=== PATIENT | male | born 2000 | race Caucasian/White ===

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

== ENCOUNTER 2023-12-06 16:50 | Emergency (ER) | payer OTHER ==
--- NOTE | 2023-12-06 16:58 | ERPHSYRPT ---
- History of Present Illness Time Seen by Provider: 12/06/23 16:57 Historian: patient, family Exam Limitations: no limitations Physician History: This is a 23-year-old male who presents to the emergency department with 2-day history of simultaneous onset right lower quadrant and right flank pain. Patient's symptoms have been intermittent for the 2-day period. However today, the pain became more intense and was associated with vomiting. Is more constant as well. Patient has had no prior abdominal surgeries. He takes no medications chronically and is not on any anticoagulation therapy. He has no known drug allergies. He denies chest pain. He denies shortness of breath. Patient has been diaphoretic. Timing/Duration: day(s) (2), worse Quality: sharpness, stabbing Abdominal Pain Onset Location: RLQ, flank (Right flank) Pain Radiation: RLQ, flank (Right flank) Severity of Pain-Max: moderate Severity of Pain-Current: moderate Modifying Factors: Improves With: vomiting Associated Symptoms: diaphoresis, loss of appetite, nausea, vomiting Previous symptoms: no prior history, no recent treatment Allergies/Adverse Reactions: No Known Drug Allergies Allergy (Verified 12/06/23 16:59) Hx Tetanus, Diphtheria Vaccination/Date Given: Yes Hx Influenza Vaccination/Date Given: Yes Travel Risk - International Travel Have you traveled outside of the country in past 3 weeks: No - Emerging Infectious Disease Are you exhibiting symptoms associated with any current EIDs: No - Review of Systems Constitutional: No Symptoms Eyes: No Symptoms Ears, Nose, & Throat: No Symptoms Respiratory: No Symptoms Cardiac: No Symptoms Abdominal/Gastrointestinal: Abdominal Pain (Lower quadrant), Nausea, Vomiting, Appetite Changes Genitourinary Symptoms: Flank Pain (Right flank pain) Musculoskeletal: No Symptoms Skin: No Symptoms Neurological: No Symptoms Psychological: No Symptoms Endocrine: No Symptoms Hematologic/Lymphatic: No Symptoms Immunological/Allergic: No Symptoms All Other Systems: Reviewed and Negative - Past Medical History Pertinent Past Medical History: No - Past Surgical History Past Surgical History: No - Social History Smoking Status: Never smoker Drug Use: none - Nursing Vital Signs Nursing Vital Signs: Initial Vital Signs Temperature 97.8 F 12/06/23 17:01 Pulse Rate 60 12/06/23 17:01 Respiratory Rate 16 12/06/23 17:01 Blood Pressure 153/84 12/06/23 17:01 O2 Sat by Pulse Oximetry 100 12/06/23 17:01 Pain Scale Pain Intensity 7 - Physical Exam General Appearance: mild distress, alert Eye Exam: PERRL/EOMI, eyes nml inspection Ears, Nose, Throat Exam: normal ENT inspection, moist mucous membranes Neck Exam: normal inspection, non-tender, supple, full range of motion Respiratory Exam: normal breath sounds, lungs clear, airway intact, No chest tenderness, No respiratory distress Cardiovascular Exam: bradycardia Gastrointestinal/Abdomen Exam: soft, normal bowel sounds, No tenderness Rectal Exam: not done Back Exam: normal inspection, normal range of motion, No CVA tenderness, No vertebral tenderness Extremity Exam: normal inspection, normal range of motion, pelvis stable Neurologic Exam: alert, oriented x 3, cooperative, advanced practice rn II-XII nml as tested, nml cerebellar function, nml station & gait, sensation nml Skin Exam: diaphoresis Lymphatic Exam: No adenopathy SpO2 Interpretation: normal O2 Delivery: Room Air - Course Nursing assessment & vital signs reviewed: Yes EKG Interpreted by Me: RATE (50), Sinus Rhythm, NORMAL AXIS, NORMAL INTERVALS, NORMAL QRS, NORMAL ST-T, Other (Acute ischemia on today's twelve-lead EKG.) Ordered Tests: Active Orders 24 hr Category Date Time Status EKG-ER Only STAT Care 12/06/23 17:17 Active IV Insertion STAT Care 12/06/23 17:17 Active ABDOMEN AND PELVIS W/0 CONTRAS [CT] Stat Exams 12/06/23 17:18 Taken AMYLASE Stat Lab 12/06/23 17:05 Completed CBC W DIFF Stat Lab 12/06/23 17:05 Completed CMP Stat Lab 12/06/23 17:05 Completed CULTURE,URINE Stat Lab 12/06/23 17:19 Received LIPASE Stat Lab 12/06/23 17:05 Completed UA W/RFX UR CULTURE Stat Lab 12/06/23 17:19 Completed Medication Summary Generic Name Dose Route Start Last Admin Trade Name Freq PRN Reason Stop Dose Admin Lactated Ringer's 1,000 mls @ 999 mls/hr 12/06/23 18:03 12/06/23 18:07 Lactated Ringers IV 12/06/23 19:03 999 mls/hr .Q1H1M ONE Administration Discontinued Medications Generic Name Dose Route Start Last Admin Trade Name Freq PRN Reason Stop Dose Admin Hydromorphone HCl 1 mg 12/06/23 17:17 12/06/23 17:21 Hydromorphone 1 Mg/1ml Inj IV 12/06/23 17:18 1 mg STAT ONE Administration Hydromorphone HCl Confirm 12/06/23 17:20 Hydromorphone 1 Mg/1ml Inj Administered 12/06/23 17:21 Dose 1 mg .ROUTE .STK-MED ONE Hydromorphone HCl 1 mg 12/06/23 18:38 12/06/23 18:42 Hydromorphone 1 Mg/1ml Inj IV 12/06/23 18:39 1 mg STAT ONE Administration Hydromorphone HCl Confirm 12/06/23 18:41 Hydromorphone 1 Mg/1ml Inj Administered 12/06/23 18:42 Dose 1 mg .ROUTE .STK-MED ONE Sodium Chloride 1,000 mls @ 999 mls/hr 12/06/23 17:17 12/06/23 18:22 Sodium Chloride 0.9% 1000 Ml IV 12/06/23 18:17 Infused .Q1H1M STA Infusion Sodium Chloride Confirm 12/06/23 17:20 Sodium Chloride 0.9% 1000 Ml Administered 12/06/23 17:21 Dose 1,000 mls @ ud .ROUTE .STK-MED ONE Lactated Ringer's Confirm 12/06/23 18:06 Lactated Ringers Administered 12/06/23 18:07 Dose 1,000 mls @ ud IV .STK-MED ONE Ketorolac Tromethamine 30 mg 12/06/23 17:17 12/06/23 17:21 Ketorolac Tromethamine 30 Mg/Ml Inj IV 12/06/23 17:18 30 mg STAT ONE Administration Ketorolac Tromethamine Confirm 12/06/23 17:20 Ketorolac Tromethamine 30 Mg/Ml Inj Administered 12/06/23 17:21 Dose 30 mg .ROUTE .STK-MED ONE Ondansetron HCl 4 mg 12/06/23 17:17 12/06/23 17:21 Ondansetron Hcl 4 Mg/2 Ml Vial IV 12/06/23 17:18 4 mg STAT ONE Administration Ondansetron HCl Confirm 12/06/23 17:20 Ondansetron Hcl 4 Mg/2 Ml Vial Administered 12/06/23 17:21 Dose 4 mg .ROUTE .STK-MED ONE Lab/Rad Data: Laboratory Result Diagrams 12/06/23 17:05 12/06/23 17:05 Laboratory Results 12/06/23 12/06/23 12/06/23 Range/Units 17:19 17:05 17:05 WBC 12.5 H (4.23-9.07) x10^3/uL RBC 4.81 (4.63-6.08) x10^6/uL Hgb 14.3 (13.7-17.5) g/dL Hct 41.0 (40.1-51.0) % MCV 85.2 (79.0-92.2) fL MCH 29.7 (25.7-32.2) pg MCHC 34.9 (32.3-36.5) g/dL RDW 11.9 (11.6-14.4) % Plt Count 230 (163-337) x10^3/uL MPV 13.6 H (9.4-12.4) fL Gran % 57.9 (34.0-67.9) % Immature Gran % (Auto) 0.2 (0.001-0.429) % Nucleat RBC Rel Count 0.0 (0.00-0.2) % Eos # (Auto) 0.08 (0.04-0.54) x10^3/uL Immature Gran # (Auto) 0.03 (0.001-0.031) x10^3u/L Absolute Lymphs (auto) 4.41 H (1.32-3.57) x10^3/uL Absolute Monos (auto) 0.66 (0.30-0.82) x10^3/uL Absolute Nucleated RBC 0.00 (0.00-0.012) x10^3u/L Lymphocytes % 35.4 (21.8-53.1) % Monocytes % 5.3 (5.3-12.2) % Eosinophils % 0.6 L (0.8-7.0) % Basophils % 0.6 (0.2-1.2) % Absolute Granulocytes 7.20 H (1.78-5.38) x10^3/uL Basophils # 0.07 (0.01-0.08) x10^3/uL Sodium 138 (135-145) mmol/L Potassium 3.0 L* (3.5-5.1) mmol/L Chloride 102 (98-107) mmol/L Carbon Dioxide 18 L (22-30) mmol/L Anion Gap 20.4 H (5-15) MEQ/L BUN 15 (9-20) mg/dL Creatinine 1.07 (0.66-1.25) mg/dL Estimated GFR 100.0 ML/MIN Glucose 136 H (74-106) mg/dL Calcium 9.7 (8.4-10.2) mg/dL Total Bilirubin 1.10 (0.2-1.3) mg/dL AST 29 (17-59) U/L ALT 38 (0-50) U/L Alkaline Phosphatase 74 (38-126) U/L Serum Total Protein 7.9 (6.3-8.2) g/dL Albumin 4.8 (3.5-5.0) g/dL Amylase 65 (30-110) U/L Lipase 49 (23-300) U/L Urine Color Dark Yellow (Yellow) Urine Appearance Turbid A (Clear) Urine pH 5.0 (4.6-8.0) Ur Specific Talent >=1.030 A (1.005-1.030) Urine Protein 30 (Negative) Urine Glucose (UA) Negative (Negative) mg/dL Urine Ketones 15 A (Negative) Urine Blood Large A (Negative) Urine Nitrite Negative (Negative) Urine Bilirubin Negative (Negative) Urine Urobilinogen 1.0 A (0.2) mg/dL Ur Leukocyte Esterase Trace A (Negative) U Hyaline Cast (Auto) None Seen (0-2) /LPF Urine Microscopic RBC 3-5 (0-5) /HPF Urine Microscopic WBC 3-5 (0-5) /HPF Ur Epithelial Cells Rare (None Seen) /HPF Urine Bacteria Rare A (None Seen) /HPF Urine Culture Reflexed YES (NO) - Progress Progress: improved, pain not gone completely, re-examined Progress Note: 12/06/23 17:51 My medical decision making and the assignment of moderate complexity to this patient's medical issue today is based on review of the patient's past medical history, review the patient's medication list, review of patient drug allergy list, history present illness and physical findings on examination. The workup in this patient includes placement of intravenous line, infusion of normal saline solution, infusion of 30 mg intravenous Toradol, infusion of 1 mg Dilaudid, infusion of Zofran 4 mg intravenously, CBC, CMP, amylase, lipase, urinalysis, twelve-lead EKG, CT scan of the abdomen pelvis without contrast. Differential diagnosis includes but is not limited to acute appendicitis, ureterolithiasis, pancreatitis, mesenteric adenitis, colitis 12/06/23 18:55 I interpreted the patient's laboratory data results. Patient has hematuria. He has evidence of mild urinary tract infection. He has mild leukocytosis. CT scan of the abdomen pelvis without contrast was interpreted by the radiologist and I reviewed the impression. The impression states no comparison films available. There is a 3 to 4 mm ureteral calculus at the right UVJ with mild hydronephrosis present. Counseled pt/family regarding: lab results, diagnosis, need for follow-up, rad results Medical Desision Making - Independent Historian Additional History obtained from: Father - Diagnostic Testing Diagnostic test were ordered, analyzed, and reviewed by me: Yes Radiological Interpretation: Reviewed by me, Teleradiologist Report - Risk of complications The pt has a mod risk of morbidity or mortality based on: Need for prescription drug management - Departure Departure Disposition: Home Clinical Impression: Right ureteral calculus Condition: Stable Critical Care Time: No Additional Instructions: Drink plenty of clear liquids. Advance your diet slowly. Take ibuprofen 600 mg orally 3 times a day with food. Take your other prescribed medicine as prescribed. Call your primary care provider tomorrow, 12/07/2023, to make arrangements for follow-up appointment to be seen in the next 2 to 3 days and referral to urologist as indicated. Prescriptions: Hydrocodone/APAP 5/325 [[place] 5/325 mg] 1 each PO Q8H PRN PRN #6 tablet MDD 3 PRN Reason: Pain Tamsulosin HCl 0.4 mg [Flomax 0.4 MG] 0.4 mg PO DAILY #7 cap Cephalexin Mh 500 mg [Keflex 500 mg] 500 mg PO TID #15 cap Potassium Chloride Tab* [Klor Con] 10 meq PO DAILY #4 tab
[2023-12-06 17:13] VITALS: TEMP 97.8
[2023-12-06] MEDS ORDERED: Sodium Chloride 0.9% 1000 ML 1,000 ML ONE (17:20)
[2023-12-06] MEDS ORDERED: TORAdol 30 mg Injection ONE (17:20)
[2023-12-06] MEDS ORDERED: Zofran 4 MG/2 ML VIAL ONE (17:20)
[2023-12-06] MEDS ORDERED: Hydromorphone 1 mg/ml Injection ONE ×2 (17:20→18:41)
[2023-12-06] MEDS: TORAdol 30 mg Injection IV ONE (17:21)
[2023-12-06] MEDS: Zofran 4 MG/2 ML VIAL IV ONE (17:21)
[2023-12-06] MEDS: Sodium Chloride 0.9% 1000 ML 1,000 ML IV STA (17:21)
[2023-12-06] MEDS: Hydromorphone 1 mg/ml Injection IV ONE ×2 (17:21→18:42)
[2023-12-06 17:43] LABS: BASOPHIL % 0.6 % (0.2-1.2); Basophil (Absolute #) 0.07 x10^3/uL (0.01-0.08); Eosinophil % 0.6 % (0.8-7.0); Eosinophil (Absolute #) 0.08 x10^3/uL (0.04-0.54); Hemoglobin 14.3 g/dL (13.7-17.5); IMMATURE GRAN # 0.03 x10^3u/L (0.001-0.031); IMMATURE GRAN % 0.2 % (0.001-0.429); Lymphocyte (Absolute #) 4.41 x10^3/uL (1.32-3.57); Lymphocytes % 35.4 % (21.8-53.1); Mean Cell Volume 85.2 fL (79.0-92.2); Mean Corpuscular Hemoglobin 29.7 pg (25.7-32.2); Mean Corpuscular Hgb Concent. 34.9 g/dL (32.3-36.5); Mean Platelet Volume 13.6 fL (9.4-12.4); Monocyte (Absolute #) 0.66 x10^3/uL (0.30-0.82); Monocytes % 5.3 % (5.3-12.2); Neutrophil % 57.9 % (34.0-67.9); Platelet Count 230 x10^3/uL (163-337); Red Blood Count 4.81 x10^6/uL (4.63-6.08); Red Cell Distribution Width 11.9 % (11.6-14.4); White Blood Count 12.5 x10^3/uL (4.23-9.07)
[2023-12-06 17:54] LABS: ALBUMIN 4.8 g/dL (3.5-5.0); ANION GAP 20.4 MEQ/L (5-15); BILIRUBIN,TOTAL 1.1 mg/dL (0.2-1.3); Calcium 9.7 mg/dL (8.4-10.2); Creatinine 1 1.07 mg/dL (0.66-1.25); Total Protein 7.9 g/dL (6.3-8.2)
[2023-12-06] MEDS ORDERED: Lactated Ringers 1,000 ML IV ONE (18:06)
[2023-12-06 18:07] LABS: Appearance Turbid (Clear); Bilirubin Negative (Negative); Blood Large (Negative); Glucose, Urine Negative (Negative); Ketones 15 (Negative); Leukocyte Esterase Trace (Negative); Nitrite Negative (Negative); Protein,Urine Dip 30 (Negative); Specific Gravity >=1.030 (1.005-1.030)
[2023-12-06] MEDS: Lactated Ringers 1,000 ML IV ONE (18:07)
[2023-12-06 18:08] LABS: Bacteria Rare /HPF (None Seen); Epithelial Cells Rare /HPF (None Seen)
[2023-12-06 18:09] LABS: ADD URINE CULTURE? YES (NO); Hyaline Casts None Seen /LPF (0-2)
[2023-12-06] MEDS ORDERED: Flomax 0.4 MG ONE (19:02)
[2023-12-06] MEDS: Flomax 0.4 MG PO ONE (19:06)
[2023-12-06] MEDS ORDERED: NORCO 5/325 MG ONE (19:40)
[2023-12-06] MEDS: NORCO 5/325 MG PO ONE (19:41)
[2023-12-06 19:43] VITALS: BP 142/87; PULSE 60; RESP 16; O2SAT 97
--- NOTE | 2023-12-07 08:39 | XRAY ---
Indication: Right lower quadrant/right flank pain. Nausea and vomiting. Multiple contiguous axial images obtained through the abdomen and pelvis without contrast using renal stone protocol. Comparison: None Lung bases clear. Heart is not enlarged. Partial duplication right system. 3-4 mm distal right ureter calculus just proximal to UVJ. Proximal right ureter is slightly prominent along with mild hydronephrosis consistent with partial obstructive uropathy. No free fluid/air. Noncontrasted stomach and bowel loops appear nonobstructed with normal appendix. Many liver, gallbladder, pancreas, spleen, adrenal glands, kidneys, ureters, bladder, and aorta are unremarkable for noncontrast exam. Osseous structures intact. Impression: 1. 3-4 mm distal right ureter calculus producing partial obstruction as detailed. 2. Remaining CT abdomen/pelvis without contrast exam is negative.
== END 2023-12-06 19:50 | disposition home or self-care (01) ==
LOC: ED 16:50
DX: N13.2 Hydronephrosis with renal and ureteral calculous obstruction (principal); R10.31 Right lower quadrant pain; R10.9 Unspecified abdominal pain; R11.2 Nausea with vomiting, unspecified; Z79.891 Long term (current) use of opiate analgesic; Z79.899 Other long term (current) drug therapy
CPT/HCPCS: 36000; 36415; 74176; 80053; 81001; 82150; 83690; 85025; 87086; 93005; 96374; 96375; 96376; 99284; J1170; J1885; J2405; A9270-GY